=== PATIENT | female | born 1980 | race Caucasian/White ===

== ENCOUNTER → 2016-11-01 | Outpatient (CLI) | payer OTHER ==
--- NOTE | 2016-11-01 18:23 | REP ---
Pelvic sonography: History: Follow-up ovarian cyst. Comparison study: 08/15/2016 showed a 3.8 cm complex hemorrhagic cystic lesion in the left ovary. Paraovarian cysts are noted bilaterally. Findings: Transabdominal and transvaginal scanning are performed. Uterine dimensions are 8.9 x 5.1 x 6.0 cm. Endometrial echo is 1.1 cm thick and centrally placed. No free fluid is seen. The right ovary is normal in size measuring 2.4 x 2.2 x 2.7 cm. There is a 1.7 x 1.6 x 1.5 cm paraovarian cyst in the right adnexa today. Doppler flow to the right ovary is normal with resistive index 0.72. Left ovary dimensions today are 3.0 x 1.8 x 2.8 cm. There is a 2.0 cm dominant follicle in the left ovary. A paraovarian cyst is seen in the left ovary measuring 2.3 x 2.3 x 1.9 cm. Ovarian Doppler flow on the left is normal with resistive index measuring 0.58. Impression: Small bilateral paraovarian cysts, one on each side unchanged. The previously noted complex hemorrhagic cyst in the left ovary has resolved. Signed by Terell Rivera MD 11/02/2016 12:24 P
== END ==
LOC: M RAD 16:06
PROVIDERS: ATTEND Obstetrics & Gynecology
DX: N80.9 Endometriosis, unspecified (principal); R10.2 Pelvic and perineal pain

== ENCOUNTER → 2016-11-08 | Outpatient (CLI) | payer OTHER ==
--- NOTE | 2016-11-08 10:54 | REP ---
CT MAXILLOFACIAL WITHOUT CONTRAST: 11/08/2016 CLINICAL HISTORY: Chronic rhinitis. There are no prior studies. TECHNIQUE: Axial thin-section images with coronal bone window reconstructions provided. FINDINGS: There is slight deviation the nasal septum towards the right. The ostiomeatal complex on the right shows some mild narrowing of the infundibulum. The ostium is patent. There is a small Elidia cell present. On the left, there is mucosal thickening and occlusion of the ostium of the OMC and the infundibulum is stenotic and occluded. The hiatus semilunaris is poorly defined on the left and adequate on the right. There is a small middle turbinate on the right. The left middle turbinate is difficult to define due to surrounding mucosal thickening in the nasal passage. There is some minor mucosal changes in the maxillary antrum otherwise with some bony loculations anteriorly and superiorly on the left and one septum laterally in the right. The orbital floors are intact. The sphenoid air cells are clear. Maxillary antra show no air-fluid levels. The frontal sinuses are clear. The ethmoid show some mucosal thickening anterior air cells on the left but the right sided ethmoid air cells are clear. Visualized mastoids and skull base otherwise unremarkable. That portion of mandible included is unremarkable. IMPRESSION: 1. 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 There are Elidia cells bilaterally, left greater than right. 2. Some mild infundibular stenosis on the right. 3. Hiatus semilunaris is opacified on the left, patent on the right. 4. Deviation of the septum towards the right. There are no other significant findings. Signed by Fili Rai MD 11/08/2016 05:12 P
== END ==
LOC: M RAD 09:40
PROVIDERS: ATTEND Otolaryngology
DX: J31.0 Chronic rhinitis (principal)

== ENCOUNTER 2016-12-05 18:42 | Emergency (ER) | payer OTHER ==
[~2016-12-05] VITALS: Ht 167.6 cm; Wt 71.7 kg
[~2016-12-05 18:42] MED LIST changes: -LIDOCAINE 2% INJ 100 MG/5 ML SDV (FOR ANES.) As Ordered ONE; -NS 1,000 ML IV SCH; -PROPOFOL 200 MG/20 ML VIAL As Ordered ONE
--- NOTE | 2016-12-05 19:48 | ED PDOC ---
Post-Departure Follow-Up Patient seen solely by Dr. Rodriguez. No ER provider involved in care. SANDHYA CALIXTO, Dec 05, 2016 19:48
[2016-12-05 19:53] VITALS: BP 127/83
== END 2016-12-05 20:01 | disposition home or self-care (01) ==
LOC: M ED 19:57
DX: K91.841 Postprocedural hemorrhage of a digestive system organ or structure following other procedure (principal)

== ENCOUNTER → 2016-12-05 | Outpatient (CLI) | payer OTHER ==
[~2016-12-05] VITALS: Ht 167.6 cm; Wt 72.6 kg
[~2016-12-05] MED LIST: AMIT24CA5 PO; ATIV1TAB7 PO; AZEL0.1S3; BUPR1TAB56 PO; BUPR300T34 PO; CLAR10CA3 PO; FLON1SPR; LAMO100T PO; LIDOCAINE 2% INJ 100 MG/5 ML SDV (FOR ANES.) As Ordered ONE; MULTCAP8 PO; NS 1,000 ML IV SCH; PROPOFOL 200 MG/20 ML VIAL As Ordered ONE; SING10TA32 PO
--- NOTE | 2016-12-05 14:56 | ROOR ---
Patient Name: Suzanne Carlos Procedure Date: 12/05/2016 2:35 PM Date of : 1980 Age: 36 Room: [facility] Gender: Female Note Status: Finalized Procedure: Colonoscopy Indications: Irritable bowel syndrome with constipation, Change in bowel habits Providers: Micah RODRIGUEZ MD Referring MD: ALESIA DAILY Requesting Provider: Medicines: Monitored Anesthesia Care Complications: No immediate complications. Procedure: Pre-Anesthesia Assessment: - The heart rate, respiratory rate, oxygen saturations, blood pressure, adequacy of pulmonary ventilation, and response to care were monitored throughout the procedure. The Colonoscope was introduced through the anus and advanced to 6 cm into the ileum. The colonoscopy was performed without difficulty. The patient tolerated the procedure well. The quality of the bowel preparation was good. Findings: The perianal and digital rectal examinations were normal. A 8 mm polyp was found in the rectum. The polyp was pedunculated. The polyp was removed with a cold snare. Resection and retrieval were complete. To prevent bleeding after the polypectomy, two hemostatic clips were successfully placed (MR conditional). There was no bleeding at the end of the procedure. Small Internal Hemorrhoids. The exam was otherwise without abnormality on direct and retroflexion views. The terminal ileum appeared normal. Impression: - One 8 mm polyp in the rectum (at 13 cm), removed with a cold snare. Resected and retrieved. Clips (MR conditional) were placed. - Small Internal Hemorrhoids. - The examination was otherwise normal on direct and retroflexion views. - The examined portion of the ileum was normal. Recommendation: - Repeat colonoscopy in 3 years for surveillance. - Continue present medications. Micah Rodriguez MD Micah RODRIGUEZ MD 12/05/2016 2:55:39 PM This report has been signed electronically. Number of Addenda: 0 Note Initiated On: 12/05/2016 2:35 PM Estimated Blood Loss: Estimated blood loss: none.
[2016-12-05 15:20] VITALS: BP 132/80
--- NOTE | 2016-12-05 19:49 | ROOR ---
Patient Name: Suzanne Carlos Procedure Date: 12/05/2016 7:40 PM Date of : 1980 Age: 36 Room: Travel Gender: Female Note Status: Finalized Procedure: Flexible Sigmoidoscopy Indications: Treatment of bleeding from polypectomy site Providers: Micah RODRIGUEZ MD Referring MD: ALESIA DAILY Requesting Provider: Medicines: None Complications: No immediate complications. Procedure: Pre-Anesthesia Assessment: - The heart rate, respiratory rate, oxygen saturations, blood pressure, adequacy of pulmonary ventilation, and response to care were monitored throughout the procedure. The was introduced through the anus and advanced to the distal sigmoid colon. The flexible sigmoidoscopy was accomplished without difficulty. The patient tolerated the procedure well. The quality of the bowel preparation was good. Findings: Oozing blood was seen in the proximal rectum, secondary to previous polypectomy procedure. To stop active bleeding, three hemostatic clips were successfully placed (MR conditional). There was no bleeding at the end of the procedure. Impression: - Slow ooze/bleeding in the proximal rectum secondary to previous polypectomy. Clips (MR conditional) were placed. - No specimens collected. Recommendation: - The patient will be observed post-procedure, until all discharge criteria are met. Micah Rodriguez MD Micah RODRIGUEZ MD 12/05/2016 7:48:46 PM This report has been signed electronically. Number of Addenda: 0 Note Initiated On: 12/05/2016 7:40 PM Estimated Blood Loss: Estimated blood loss was minimal.
== END ==
LOC: M OPP 11:36
PROVIDERS: ATTEND Internal Medicine Gastroenterology
DX: K58.1 Irritable bowel syndrome with constipation (principal); R19.4 Change in bowel habit; K62.1 Rectal polyp; D12.7 Benign neoplasm of rectosigmoid junction; K91.840 Postprocedural hemorrhage of a digestive system organ or structure following a digestive system procedure; K64.8 Other hemorrhoids; F32.9 Major depressive disorder, single episode, unspecified; F41.9 Anxiety disorder, unspecified; N80.9 Endometriosis, unspecified; Z79.899 Other long term (current) drug therapy; Z88.8 Allergy status to other drugs, medicaments and biological substances

== ENCOUNTER → 2017-01-31 | Outpatient (REF) | payer OTHER | LOC: M LAB REF 17:03 | PROVIDERS: ATTEND Physician Assistant Medical | DX: M54.5 Low back pain (principal) ==

== ENCOUNTER → 2017-02-02 | Outpatient (REF) | payer OTHER | LOC: M LAB REF 17:21 | PROVIDERS: ATTEND Physician Assistant Medical | DX: Z12.4 Encounter for screening for malignant neoplasm of cervix (principal) ==